=== PATIENT | female | born 1960 | race Caucasian/White ===

== ENCOUNTER → 2020-02-18 06:59 | Outpatient (CLI) | payer OTHER, SELFPAY ==
--- NOTE | ~2020-02-18 | XR_ITS ---
XR_CERV2-3V_CR 02/18/2020 07:45 Indication: Neck pain Procedure: 3 views cervical spine Comparison: No prior studies for comparison. Findings: No fracture or traumatic malalignment. Straightening of cervical lordosis. No prevertebral soft tissue swelling. Odontoid process within normal limits. Mild uncinate degenerative changes at mu ltiple levels. Lung apices are normal. Impression: 1: Mild cervical spondylosis. Reviewed, dictated and finalized at location A. GER DEVELOPMENT Impression: 1: Mild cervical spondylosis.
--- NOTE | ~2020-02-18 | XR_ITS ---
XR lumbar spine 2-3V 02/18/2020 07:45 Indication: Low back pain Procedure: 3 views lumbar spine Comparison: No prior studies for comparison. Findings: Osteopenia. Loss of disc height at L2-3 and to a lesser degree L3-4. No evidence for spondy lolisthesis. No acute fracture or traumatic malalignment. Pedicles intact. Mild facet degenerative ch anges at L5-S1. There is mild levocurvature of the thoracolumbar spine Impression: 1: Mild lumbar spondylosis. Reviewed, dictated and finalized at location A. LAYER MERCHANDISE Impression: 1: Mild lumbar spondylosis.
--- NOTE | ~2020-02-18 | XR_ITS ---
XR thoracic spine 2V 02/18/2020 07:45 Indication: Back pain Procedure: 3 views of the thoracic spine Comparison: No prior studies for comparison. Findings: Mild dextrocurvature of the thoracic spine. Osteopenia. No acute fracture or traumatic poly lignment. Mild levocurvature of the upper thoracic spine. No paraspinal soft tissue abnormality. Mild wedge-shaped appearance to T12 which is likely developmental or chronic. Impression: 1: No acute abnormality of the thoracic spine. Reviewed, dictated and finalized at location A. ATCHER SERVICE OR WORK Impression: 1: No acute abnormality of the thoracic spine.
== END ==
PROVIDERS: Visit Provider Chiropractor
DX: M47.812 Spondylosis without myelopathy or radiculopathy, cervical region (principal); M47.817 Spondylosis without myelopathy or radiculopathy, lumbosacral region; M85.88 Other specified disorders of bone density and structure, other site
CPT/HCPCS: 72040; 72070; 72100

== ENCOUNTER 2023-04-18 02:07 | Day surgery (SDC) | payer BC, SELFPAY ==
[2023-03-22 13:53] VITALS: BMI 21.7
--- NOTE | 2023-04-15 10:57 | PC.NURSE ---
Patient called regarding upcoming procedure. Reviewed preop instructions, appointment times, and procedure prep.
[2023-04-18 09:52] VITALS: BP 83/51; PULSE 70; RESP 16; TEMP 36.1; O2SAT 98; BMI 21.4
[2023-04-18] MEDS: LACTATED RINGERS 1,000 ML 150 ML IV CONT (10:09)
--- NOTE | 2023-04-18 10:21 | WPDANESEPPF ---
Anes - Initial Pre Proc Eval Procedure: Operation Date: 04/18/23 11:00 Proposed Procedures p Screening Colonoscopy - Hubert Mensah MD Date/Time: 04/18/23 10:21 Surgeon: Hubert Mensah MD Pre Op Diagnosis: neoplasm screening Patient Data Age: 62 Gender: F Height: 1.73 m Weight: 64 kg Last Vital Signs Temp 96.9 F L 04/18/23 09:52 Pulse 70 04/18/23 09:52 Resp 16 04/18/23 09:52 BP 83/51 L 04/18/23 09:52 Pulse Ox 98 04/18/23 09:52 Allergies Allergy/AdvReac Type Severity Reaction Status Date / Time No Known Allergies Allergy Mild Verified 04/18/23 09:59 Home Medications Medication Instructions Recorded Confirmed Type brimonidine 0.2 %-timolol 0.5 % 1 drp ophthalmic (eye) DAILY 03/22/23 04/18/23 History eye drops dorzolamide 2 % eye drops 1 drp ophthalmic (eye) DAILY 03/22/23 04/18/23 History latanoprost 0.005 % eye drops 1 drp ophthalmic (eye) DAILY 03/22/23 04/18/23 History Patient hx anesthesia problems: none Family hx anesthesia problems: none Results Review: All pre-operative results and documents have been reviewed as part of the pre-operative evaluation. [facility] Social History Social History Smoking status: Never smoker Alcohol intake: never Substance use type: does not use Living arrangements: with friend(s) Spiritual care concerns: No Anes - Eval Final PreProcedure Day of Procedure 04/18/23 10:21 Patient weight: normal Heart: regular rate and rhythm Lungs: clear to auscultation Airway: Mallampati scale class II Neurological: alert and oriented Last oral intake: >/= 8 hours ASA classification: II Emergent: no Anesthetic plan: proceed Anesthesia type and monitoring: general GIVS and standard monitoring Results Review: All pre-operative results and documents have been reviewed as part of the pre-operative evaluation. Informed Consent: The patient's anesthetic plan and its attendant risks and benefits were discussed with the patient/family/POA. Questions were solicited and answers provided to the satisfaction of the patient/family/POA.
--- NOTE | 2023-04-18 10:42 | PM.HPGS ---
History of Present Illness History of Present Illness Consent: Risks, benefits, and alternatives have been discussed and questions answered. Patient agrees to proceed with procedure. Chief complaint: neoplasm screening Narrative: Raven Almeida is a 62 year old female here for screening colonoscopy, last one 5 years ago Review of Systems Constitutional: Constitutional: Denies headache(s) and Denies weakness Eyes: Eyes: Denies blurry vision ENT: Reports Normal hearing present, Denies headache(s) and Denies neck pain Cardiovascular: Cardiovascular: Denies chest pain and Denies dyspnea Respiratory: Respiratory: Denies dyspnea Gastrointestinal: Gastrointestinal: Reports no additional gastrointestinal complaints Genitourinary: Genitourinary: Denies dysuria Musculoskeletal: Musculoskeletal: Denies neck pain Integumentary/Breasts: Skin/Breast: Denies dry skin Neurologic: Reports Normal hearing present, Denies headache(s) and Denies weakness Psychiatric: Psychiatric: Denies anxiety Endocrine: Endocrine: Denies change in body appearance Hematologic/Lymphatic: Hematologic/Lymphatic: Denies easy bleeding Allergic/Immunologic: Allergic/Immunologic: Denies urticaria PMFSH Past Medical History Medical History (Updated 04/18/23 @ 10:42 by Hubert Mensah MD) Colon cancer screening Social History Social History Smoking status: Never smoker Alcohol intake: never Substance use type: does not use Living arrangements: with friend(s) Spiritual care concerns: No Meds Home Medications and Allergies Home Medications Medication Instructions Recorded Confirmed Type brimonidine 0.2 %-timolol 0.5 % 1 drp ophthalmic (eye) DAILY 03/22/23 04/18/23 History eye drops dorzolamide 2 % eye drops 1 drp ophthalmic (eye) DAILY 03/22/23 04/18/23 History latanoprost 0.005 % eye drops 1 drp ophthalmic (eye) DAILY 03/22/23 04/18/23 History Allergies Allergy/AdvReac Type Severity Reaction Status Date / Time No Known Allergies Allergy Mild Verified 04/18/23 09:59 Vital Signs Vital Signs - 24 hr 04/18/23 09:52 Temperature 96.9 F L Pulse Rate 70 Respiratory Rate 16 Blood Pressure 83/51 L Pulse Oximetry 98 Exam Const: General: comfortable and no acute distress HENMT: Face/Nose/Sinus: Normal nares present Eyes: General: appearance normal, both eyes and all related structures Neck: Neck: no JVD Resp: Auscultation: clear to auscultation bilaterally Cardio: Rate: regular rate Rhythm: regular rhythm GI: Inspection: non-distended GI Palp: Yes Soft to palpation Skin: General skin exam: normal color Neuro: General: gait normal Speech: normal speech Extrem: General: normal to inspection Psych: Mental Status: mental status grossly normal Assessment and Plan Assessment and plan (1) Colon cancer screening: Code(s): Z12.11 - Encounter for screening for malignant neoplasm of colon Status: Acute Assessment and Plan: colonoscopy
[2023-04-18 11:08] VITALS: BP 80/45; PULSE 59; RESP 16; O2SAT 97
[2023-04-18 11:18] VITALS: BP 102/66; PULSE 56; RESP 16; O2SAT 97
[2023-04-18 11:21] VITALS: BP 105/59; PULSE 60; RESP 17; O2SAT 97
[2023-04-18 11:31] VITALS: BP 106/65; PULSE 60; RESP 17; O2SAT 97
[2023-04-18 11:41] VITALS: BP 130/90; PULSE 74; RESP 17; O2SAT 99
--- NOTE | 2023-04-18 12:00 | SUR.PHASEII ---
1140 Slow to wake up, and waiting for ride to arrive. Beginning to get dressed to go home
== END 2023-04-18 11:50 | disposition home or self-care (01) ==
PROVIDERS: PCP Student in an Organized Health Care Education/Training Program; Visit Provider Internal Medicine Gastroenterology
PROC: 0DJD8ZZ Inspection of Lower Intestinal Tract, Via Natural or Artificial Opening Endoscopic (ICD-10-PCS; CPT 45378; principal; 2023-04-18 11:00)
DX: Z12.11 Encounter for screening for malignant neoplasm of colon (principal); D12.2 Benign neoplasm of ascending colon; D12.5 Benign neoplasm of sigmoid colon
CPT/HCPCS: 45385; 88305; J2371; J2704; J7120

== ENCOUNTER 2023-09-16 14:25 | Outpatient (CLI) | payer MEDICARE, SELFPAY ==
--- NOTE | ~2023-09-16 | DEXA_ITS ---
Bone Density Report Name: ADRIAN BROWNE Age: 63 Sex: Female Ethnicity: White Date of : 1960 Indication: postmenopausal; screening for osteoporosis; height loss; Referring Provider: TURNER, CHARLIE Study: Bone densitometry was performed. Exam Date: September 16, 2023 Accession number: [id number] Bone Density: Region BMD T-score Z-score Classification AP Spine(L1-L4) 0.698 -3.2 -1.4 Osteoporosis Femoral Neck (Left) 0.553 -2.7 -1.2 Osteoporosis Total Hip (Left) 0.782 -1.3 -0.1 Osteopenia Femoral Neck (Right) 0.571 -2.5 -1.0 Osteoporosis Total Hip (Right) 0.776 -1.4 -0.1 Osteopenia Total Hip Mean 0.779 -1.4 -0.1 Osteopenia World Health Organization criteria for BMD impression classify patients as: Normal (T-score at or above -1.0), Osteopenia (T-score between -1.0 and -2.5), or Osteoporosis (T-score at or below -2.5). 10-year Fracture Risk: FRAX not reported because: Some T-score for Spine Total or Hip Total or Femoral Neck at or below -2.5 Clinical Information Provided by Patient: Patient maximum height was 68.0 Menopause Age: 48 No regular weight bearing exercise Onset of menses at age 14 Number of children 3 Impression: The patient has osteoporosis, based on the Total Spine T-score. Discussion: INCREASED RISK OF FRACTURE. BONE DENSITY IS UNDESIRABLY LOW AT ONE OR MORE SKELETAL SITES, CONSISTENT WITH POSTMENOPAUSAL OSTEOPOROSIS. This patient's lowest T-score meets the World Health Organization's (WHO) criteria for osteoporosis at one or more sites (T-score -2.5 or below). In untreated patients, the risk of osteoporotic fracture increases approximately two-fold for each 1.0 SD decrease in T-score. Low bone density is not the only risk factor for fracture; also consider factors such as patient's age, frailty or poor health, risk of falling, risk of injury, previous osteoporotic fracture, family history of osteoporosis, cigarette smoking, low body weight, etc. Not everyone with low bone mineral density has osteoporosis; osteomalacia and other metabolic bone disorders should also be considered. Patients who have osteoporosis should be evaluated for specific diseases and conditions (secondary causes) that may cause or contribute to bone loss. The [place] Association of Clinical Endocrinologists (AACE) and National Osteoporosis Foundation (NOF) recommend pharmacologic intervention for all postmenopausal women whose T-score is in this range. The patient should follow a healthful lifestyle (good nutrition with adequate calcium and vitamin D, and appropriate weight-bearing exercise). Follow-Up: Consider a repeat BMD and Vertebral Fracture Assessment (VFA) exam in 2 years or sooner if medically necessary, to reassess this patient's status. Reported by: EZEQUIEL on 09/16/2023 2:54:00 PM.
== END 2023-09-16 14:26 | disposition home or self-care (01) ==
LOC: ANHIMG 14:26
PROVIDERS: PCP Registered Nurse; Visit Provider Registered Nurse
DX: Z78.0 Asymptomatic menopausal state (principal); M81.0 Age-related osteoporosis without current pathological fracture; M85.852 Other specified disorders of bone density and structure, left thigh; M85.851 Other specified disorders of bone density and structure, right thigh
CPT/HCPCS: 77080

== ENCOUNTER 2024-07-11 11:29 | Emergency (ER) | payer MEDICARE, SELFPAY ==
[2024-07-11] VITALS (8 sets, daily range): BP systolic 99–118; BP diastolic 61–94; PULSE 61–70; RESP 12–17; TEMP 36.8; O2SAT 96–100
--- NOTE | ~2024-07-11 | XR_ITS ---
EXAMINATION: XR chest 2V 07/11/2024 13:40 INDICATION: Chest pain PROCEDURE: 2 view chest COMPARISON: 02/24/2007 FINDINGS: The lungs are clear. The cardiomediastinal silhouette is within normal limits. There are no pleural effusions. There is no pneumothorax suspected. Prominent bilateral nipple shadows. IMPRESSION: 1: NO ACUTE CARDIOPULMONARY DISEASE. Reviewed, dictated and finalized at location B.
--- NOTE | 2024-07-11 11:31 | ECG_ITS ---
Test Date: 2024-07-11 11:47:53 Measurements Intervals Simpson Rate: 59 P: 65 WI: 227 QRS: 33 QRSD: 77 T: 63 QT: 377 QTc: 376 Interpretive Statements SINUS BRADYCARDIA WITH FIRST DEGREE AV BLOCK LOW QRS VOLTAGE IN PRECORDIAL LEADS CANNOT R/O SEPTAL INFARCT, AGE INDETERMINATE BASELINE ARTIFACT- I, III, AVR, AVL, AVF ABNORMAL ECG No previous ECG available for comparison Electronically Signed On 07-11-2024 12:56:38 CDT by Ming Nelson D.O.
[2024-07-11 12:02] LABS: Basophils Percent Auto 0.3 % (0.2-1.2); Eosinophils Absolute Auto 0.2 K/mm3 (0-0.3); Eosinophils Percent Auto 1.8 % (0-4.4); Hematocrit 45.3 % (37.0-47.0); Immature Granulocyte Absolute 0.02 K/mm3 (0.00-0.031); Immature Granulocyte Percent A 0.2 % (0-0.5); Lymphocytes Absolute Auto 1.57 K/mm3 (0.9-3.2); Lymphocytes Percent Auto 17.5 % (18.3-44.2); Mean Corpuscular HGB Conc 33.1 g/dl (32-36); Mean Corpuscular Hemoglobin 31.4 pg (26-34); Mean Platelet Volume 9.7 fl (7.4-10.4); Monocytes Absolute Auto 0.6 K/mm3 (0.1-0.6); Monocytes Percent Auto 6.5 % (2.6-8.5); Neutrophils Absolute Auto 6.6 K/mm3 (1.3-6.7); Neutrophils Percent Auto 73.7 % (45.5-73.1); Platelet Count Result 233 k/mm3 (150-375); Red Blood Count 4.77 M/mm3 (4.2-5.4); Red Cell Distribution Width 13.1 % (11.5-14.5)
[2024-07-11 12:16] LABS: Partial Thromboplastin Time 23.4 Seconds (22.3-36.8); Prothrombin Time 13.5 Seconds (11.1-14.7)
[2024-07-11 12:23] LABS: Alanine Aminotransferase 37 U/L (6-35); Albumin Level 4.7 g/dL (3.5-5.1); Alkaline Phosphatase 72 U/L (38-126); Anion Gap 7 mmol/L (4-12); Aspartate Amino Transferase 34 U/L (14-36); Bilirubin,Total 0.9 mg/dL (0.2-1.3); Blood Urea Nitrogen 15 mg/dL (7-17); Calcium 10.2 mg/dL (8.4-10.2); Carbon Dioxide 30 mmol/L (22-30); Chloride 99 mmol/L (98-107); Estimated CRCL calculation 57 ml/min; Estimated Glomerular Filt Rate > 60; Glucose 104 mg/dL (65-110); Lipase 114 U/L (23-300); Potassium 4.3 mmol/L (3.4-5.0); Sodium 136 mmol/L (137-145)
[2024-07-11 12:35] LABS: Troponin I < 0.012 ng/mL (0.000-0.034)
--- OUTSIDE RECORDS SUMMARY | 2024-07-11 12:53 | XMS_ITS | Clinical Summary ---
Author Organization [facility] Address [address] [place] [address] Care Team Providers Care Stock Clerk Name Role Phone No, Physician Primary Care Provider [phone] Allergies No known active allergies Medications UNABLE TO FINDIndication s:supplement 2 (two) times a day Pure encapsulation Nutrient 950 Active cholecalcifero l, vitD3,/vit K2 (VITAMIN D3-VITAMIN K2 ORAL) Take by mouth every morning Active bimatoprost (LUMIGAN) 0.01 % ophthalmic drops Administer 1 drop into both eyes daily Active chlorhexidine (PERIDEX) 0.12 % solution SWISH AND SPIT 1/2 OUNCE BY MOUTH TWICE DAILY FOR 30 SECONDS 3 Active latanoprost (XALATAN) 0.005 % ophthalmic solution Administer 1 drop into both eyes nightly 7.5 mL 11 4 Active dorzolamide (TRUSOPT) 2 % ophthalmic solution Administer 1 drop into the left eye 2 (two) times a day 20 mL 3 4 Active brimonidine (ALPHAGAN) 0.2 % ophthalmic solution Administer 1 drop into both eyes 2 (two) times a day 30 mL 3 4 Active timolol (TIMOPTIC) 0.5 % ophthalmic solution Administer 1 drop into both eyes 2 (two) times a day 30 mL 3 4 Active Active Problems Problem Noted Date Diagnosed Date Chronic angle-closure glaucoma of left eye, mode rate stage 02/20/2019 Angle-closure glaucoma, severe stage 02/20/2019 Age-related nuclear cataract of both eyes 2018 Surgical History Surgery Date Site/Laterality Comments BREAST BIOPSY 2011? - benign COLONOSCOPY Medical History Medical History Date Comments Glaucoma Motion sickness Epiretinal membrane (ERM), bilateral Family History Medical History Relation Name Comments Cancer Mother Relation Name Status Comments Father Alive Mother Alive Social History Tobacco Use Types Packs/Day Years Used Date Smoking Tobacco: Never Smokeless Tobacco: Never AUDIT-C Answer Date Recorded Q1: How often do you have a drink containing alc ohol? Monthly or less 10/07/2021 Q2: How many drinks containi ng alcohol do you have on a typical day when you are drinking? 1 or 2 10/07/2021 Q3: How often do you have si x or more drinks on one occasion? 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 Gender Identity Not on file Sexual Orientation Not on file Obstetrics History Last Filed Vital Signs Vital Sign Reading Time Taken Comments Blood Pressure 120/67 10/19/2021 2:00 PM CDT Pulse 55 10/19/2021 2:00 PM CDT Temperature 36.2 C (97.2 F) 10/19/2021 1:41 PM CDT Respiratory Rate 15 10/19/2021 2:00 PM CDT Oxygen Saturation 100% 10/19/2021 2:00 PM CDT Inhaled Oxygen Concentration - - Weight 63.5 kg (140 lb) 10/05/2021 4:35 PM CDT Height 172.7 cm (5' 8 ) 10/05/2021 4:35 PM CDT Body Mass Index 21.29 10/05/2021 4:35 PM CDT Plan of Treatment Health Maintenance Due Date Last Done Comments Breast Cancer Screening-Mammogram 1960 Colon Cancer Screening-Colonoscopy 1960 Depression Screening 1960 Hepatitis C Screening 1960 Osteoporosis Screening-Bone Density Scan 1960 DTaP/Tdap/Td Vaccine (1 - Tdap) 1969 Hepatitis B Screening 1976 Pneumococcal vaccine 65+ (1 of 1 - PCV) 2008 Zoster Vaccine (1 of 2) 2008 Fall Risk Assessment 10/19/2022 10/19/2021 Well Visit 65+ 09/01/2023 Influenza Vaccine (#1) 2023 Cervical Cancer Screening 01/20/2024 01/19/2023 Medical Devices Implanted Type Area Outreach Educator Device Identifier Shelf Expiration Date Model / Serial / Lot Ida [employer] Lens Iol Tecadela Smplcty 1-Pc Clr Moca 22.0 Diopter [id number] - [id number] - [id number] Implanted:Qty: 1 on 10/19/2021 by Braulio Rios MD at [facility] Lens Right: Eye [employer] [id number] 08/18/2024 [id number] / [id number] / 0 [place] [address] CHOICE PRF PPO [place] Care Teams Stock Clerk Relationship Specialty Start Date End Date No, Physician PCP - General 12/28/18
--- OUTSIDE RECORDS SUMMARY | 2024-07-11 12:53 | XMS_ITS | Clinical Summary ---
Author Organization [facility] Address [address] [place] [address] Care Team Providers Care Tire Builder Heavy Service Name Role Phone Unavailable Primary Care Provider Unavailabl e Source Comments PLEASE NOTE, if this patient is a minor, it may be UNLAWFUL to discuss sensitive information that is contained in these records (such as FAMILY PLANNING, MENTAL HEALTH or SUBSTANCE ABUSE) with the minor patient's parent or other person without the patient's specific authorization.[facility] Allergies No known active allergies Medications No known medications Social History Tobacco Use Types Packs/Day Years Used Date Smoking Tobacco: Never Smokeless Tobacco: Never Alcohol Use Standard Drinks/Week Comments No 0 (1 standard drink = 0.6 oz pur e alcohol) Social Connections Answer Date Recorded Social Connections and Isolation 0 11/19/2018 Financial Resource Strain Answer Date R ecorded Financial Resource Strain 0 2018 Stress Answer Date Recorded Stress 0 11/19/2018 Physical Activity Answer Date Recorded Physical Activity 0 11/19/2018 Food Insecurity Answer Date Recorded Food 0 11/19/2018 Transportation Needs Answer Date Record ed Transportation 0 11/19/2018 Housing Stability Answer Date Recorded Housing 0 11/19/2018 Safety and Environment Answer Date Raymond rded Safety 0 11/19/2018 Utilities Answer Date Recorded Utilities 0 11/19/2018 Employment Answer Date Recorded Employment 0 11/19/2018 Comments No Sex and Gender Information Value Date Recorded Sex Assigned at Female 03/09/2018 9:58 AM PST Legal Sex Female 10:50 AM PDT Gender Identity Female 03/09/2018 9:58 AM PST Sexual Orientation Straight 03/09/2018 9: 58 AM PST Last Filed Vital Signs Vital Sign Reading Time Taken Comments Blood Pressure 94/57 03/09/2018 9:19 AM PST Pulse 63 03/09/2018 9:19 AM PST Temperature 36.6 C (97.8 F) 03/09/2018 9:19 AM PST Respiratory Rate 16 03/09/2018 9:19 AM PST Oxygen Saturation - - Inhaled Oxygen Concentration - - Weight 60.3 kg (133 lb) 03/09/2018 9:19 AM PST Height 172.7 cm (5' 8 ) 03/09/2018 9:19 AM PST Body Mass Index 20.22 03/09/2018 9:19 AM PST Plan of Treatment Not on file Insurance [facility] Member Subscriber Plan / Payer (Ef fective 2015-Present) Name:Raven Almeida Relation to Subscriber:Self Name:Raven Almeida Payer ID:[id number] Group ID:Not on file Type:Sabra Address: [facility] [id number] [place] [address]
--- OUTSIDE RECORDS SUMMARY | 2024-07-11 12:53 | XMS_ITS | Referral Summary ---
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 Gender Identity Not on file Sexual Orientation Not on file Last Filed Vital Signs Vital Sign Reading [...] 10/05/2021 4:35 PM CDT Plan of Treatment Not on file Medical Devices Implanted Type Area Fitting Room Inspector Device Identifier Shelf Expiration Date Model / Serial / Lot [employer] Lens Iol Tecnis Smplcty 1-Pc Clr [place] 22.0 Diopter [id number] - [id number] - [id number] Implanted:Qty: 1 on 10/19/2021 by Braulio Rios MD at [facility] Lens Right: Eye [employer] [id number] 08/18/2024 [id number] / [id number] / 0 [place] [address] MEDICARE [place] CHOICE PRF PPO [place] Care Teams Brush Head Maker Relationship Specialty Start Date End Date No, Physician PCP - General 12/28/18
--- OUTSIDE RECORDS SUMMARY | 2024-07-11 12:53 | XMS_ITS | Encounter Summary ---
Author Organization [facility] Address [address] [place] [address] Phone Care Team Providers Care Automotive Teacher Name Role Phone No, Physician Primary Care Provider [phone] Encounter Details Date Type Department Care Team (Late st Contact Info) Description 07/18/2023 Orders Only [facility] Ophthalmology [facility] [place] [address] Braulio Rios MD [address] [place], [place] [id number] Age-related nuclear cataract of both eyes (Primary Dx) Social History Tobacco Use Types Packs/Day Years [...] on file Legal Sex Female 12:49 AM BEVELER Gender Identity Not on file Sexual Orientation Not on file documented as of this encounter Plan of Treatment Not on file documented as of this encounter Visit Diagnoses Diagnosis Age-related nuclear cataract of both eyes- Primary documented in this encounter Care Teams Automotive Teacher Relationship Specialty Start Date End Date No, Physician PCP - General 12/28/18 documented as of this encounter
--- OUTSIDE RECORDS SUMMARY | 2024-07-11 12:53 | XMS_ITS | Continuity of Care Document ---
Author Organization [facility] Address [address] [place] [address] Phone Care Team Providers Care Oracle Specialist Name Role Phone Leigh Ann Kaplan PA-C Unavailable Unavailable Allergies, Adverse Reactions, Alerts Substance Reaction Status Criticality No Known Allergies Active No Inform ation Medications Medication Instructions Dosage Effective Dates (start - stop) Status Comments No Drug Therapy Prescribed Procedures Procedure Date Preven Med Estab Pt; 4064 Advance Directives Directive Yes / No Effective Date File Name No Information Encounters Encounter Description Practice Location Reason(s) For Visit Diagnoses Date Provider Providers Copied on Encounter [facility], [address], [place], [place], [id number] , tel: [phone] [facility] No Information May-0 2 6 Eusebio Beltrán. [address], [place], [place], [id number] , [place]. 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 [address], [place], [place], [id number] , . tel:[phone] Referring Provider: Leigh Ann Kaplan PA-C, [address] [facility], [address], [place], [address] . tel:[phone] Family History Family Member Type Diagnosis Age At Onset No Information Payers Payer name Insurance type Covered republican ID Authoriza tion(s) [place] P[place] BL [id number] Social History Type Description Quantity Date Captured Comments Sex Female Smoking Status No Information Chief Complaint And Reason For Visit No Information Reason For Referral Reason For Referral No Information Plan Of Treatment Date Type Action Status Referral Ordered: Mammogram; Screening, Bilateral ordered Referral Ordered: DEXA Bone Density ordered Future Order: Lab Order CBC with Diff ([id number]), Sent on: Sent Future Order: Lab Order Occult B lood, Fecal, [place] ([id number]), Sent on: Sent Future Order: Lab Order TSH REFL EX ([id number]), Sent on: Sent Future Order: Lab Order LIPID PA PURNIMA ([id number]), Sent on: Sent Future Order: Lab Order CMP ([id number]), Sent on: Sent Future Order: Lab Order UA w/ mi crop consultant refex to culture ([id number]), Sent on: Sent Future Order: Radiology Order Ma mmogram; Screening, Bilateral ([id number]), Added on: New Future Order: Radiology Order DE XA Bone Density ([id number]), Added on: New History Of Present Illness Encounter Date Complaint History Of Prese nt Illness WWE WWE (comments) Pt here for wwe. Pt doing well. . Pt recently moved here from [facility]. colonoscopy nml at age 48 no polyps foind. pt has vaginal dryness and hot flashes . pt used estrace cream with old pcp and sxs did not improve. 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
--- OUTSIDE RECORDS SUMMARY | 2024-07-11 12:53 | XMS_ITS | Data Portability ---
Author Organization [facility] [place] Address [address] [place] [address] [place] [address] Care Team Providers Care Supervisor Belt And Link Assembly Name Role Phone JOSÉ LEES Primary Care Provider Assessment Encounter Date Assessment Date Assessment LastModified by Organization Details LastModified Time 03/01/2023 03/01/2023 4 [email or web address] Not available 03/01/2023 10:26:53 04/06/2024 04/06/2024 Annual gynecological exam performed. Patient will come back in a year unless there are new symptoms. Not available 04/06/2024 10:14:07 Plan of Treatment Reminders Order Date Submit Date Provider Last Modified By Organization Details Last Modified Time Details Appointments None recorded. Lab pap, IG + HR HPV - HPV regardless but if HPV is positive need subtyping 16,18/45 2024 025 [facility] (Lab), [address], [place], [address], 5 11:55:27 test, urine 2022 023 [place], [address], [address], [place], [address], 3 10:14:13 Referral None recorded. Procedures None recorded. Surgeries None recorded. Imaging MAMMO, screening, digital, bilateral 2024 025 [place] [facility], [address], [place], [address], 04:07:26 Medication Orders None recorded. Patient TargetsNo targets recorded. Patient InstructionsNo instructions recorded. Reason for Referral None Reported. Results Created Date Observation Date Name Description Value Unit Range Abnormal Flag Note LastModifiedBy Organization Detail LastModifiedTime 03/01/2003/08/2023 CERVI X/END OCERV IX cervical histology Negati ve normal Not Available [facility] ([facility]) [address] , [place], [address], 03/08/2023 11:40:11 03/01/20 23 03/08/2023 CERVI X/END OCERV IX endocervical brushing histology Negati ve normal Not Available [facility] ([facility]) [address] [facility] [address], [place], [address], 03/08/2023 11:40:11 03/01/2003/08/2023 CERVI X/END OCERV IX results (B1) CERVI X, 4 O CLOCK GROSS ING INFOR MATIO N: Site Name: 4 O CLOCK ; Recei morales in forma meghan on a soft biops y brush is a 0.7 cm aggre gate of clear -to-m ilky mucoi d/fib rinou s mater ial. Speci men is filte red and total ly submi tted. B1 DIAGN OSIS: Benig n ectoc ervic al tissu e. Trans forma tion zone mucos a not prese nt No intra epith elial lesio n. Immun ohist ochem ical stain for p16 shows no expre ssion . (A1) ENDOC ERVIX GROSS ING INFOR MATIO N: Recei morales in forma meghan on a soft ecc brush is a 1.0 cm aggre gate of clear -to-m ilky mucoi d/fib rinou s mater ial. Speci men is filte red and total ly submi tted. A1 DIAGN OSIS: Benig n ectoc ervic al tissu e. Trans forma tion zone mucos a not prese nt. No intra epith elial lesio n. Not Available [facility] ([facility]) [address], [place], [address], 03/08/2023 11:40:11 03/01/20 23 03/01/2023 pregn taiwo test, urine HCG negati ve Not Available [facility] [address], [place], [address], 03/01/2023 10:14:03 04/06/19 25 04/06/2024 IMAGE GUIDE D PAP AND HPV REGAR DLESS image guided Pap, HPV regardless of Pap result SEE RESULT S BELOW CASE REPOR T: Cytol ogy Gynec ologi pia Repor t Case: [id number] Autho tracy michelle Provi jaylin: Daxa Durbin NP Colle cted: 04/06 0953 Order ing Locat ion: [place] [facility] Recei morales: 04/07 0128 First Frank n: Isauro Villar, CT Speci men: Frank ritter Pap - Image d, Cervi x STATE MENT OF ADEQU ACY: Satis facto ry for evalu ation Trans forma tion zone compo nent prese nt ----- ----- ----- ----- ----- ----- ----- ----- ----- ----- ----- ----- ----- ----- ----- ----- ----- ---- FINAL DIAGN OSIS: Negat dev for Intra epith elial Peter germain or Michelle luna (NIL) . Elect rom carrillo by KELSEY Watson on 2024 at [address] RANGE OPERATOR ----- ----- ----- ----- ----- ----- ----- ----- ----- ----- ----- ----- ----- ----- ----- ----- ----- ---- HPV RESUL TS: HPV mRNA E6/E7 : No HPV mRNA Detec rox NOTE: This high risk HPV mRNA assay detec ts fourt een high- risk HPV types (16, 18, 31, 33, 35, 39, 45, 51, 52, 56, 58, 59, 66, 68) witho ut diffe renti ation . COMME NT: This speci men was revie wed by a Cytot echno logis t and/o r Patho logis t (as indic ated in this repor t) after evalu ation using the Thinp rep Imagi ng Syste m. CLINI PIA INFOR MATIO N: Menst rual Statu s: LMP (if appli cable ): Clini pia Histo ry/Pr eviou s Pap: Type of Neopl yamile (if appli cable ): Signi fican t Clini pia Findi ngs: Other Histo ry: Hormo amaya (if appli cable ): PAP EDUCA MARVIN L NOTE: The Pap Test is a scree stone test with an inher ent false negat dev rate. Liqui d-bas ed sampl ing may decre ase, but will not elimi alonso, false negat dev resul ts. A negat dev resul t does not precl ude the prese nce and/o r devel opmen t of disea se, since the prese nce of abnor mal cells in the sampl e depen ds on the locat ion of the lesio n and sampl ing techn ique. Ginger nued regul ar scree stone is the best metho d of cance r preve ntion . If repor rox cytol ogic findi ng do not corre late with physi pia and/o r histo rical findi ngs, furth er inves tigat ion is recom luis antonio d, as clini edson ruiz nted. Not Available [facility] (Lab) [address], [place], [address], 04/13/2024 11:55:27 04/06/19 25 DEXA No observ ation record ed. [email or web address] Not Available 2024 10:47:32 Result Notes None recorded. Procedures Surgical History Date Name Laterality Status Provider Name and Address Organization Details Recorded Time 03/01/20 Colposcopy completed ROBERTO Rodriguez- [address], [place], [address], [place] [facility] 03/01/2023 10:34:03 02/02/20 23 Date of Last Pap Smear completed Kristine [facility] 02/15/2023 11:13:59 cataract surgery completed Kristine [facility] 02/15/2023 11:21:31 Imaging Results Imaging Date Name Status LastModified by Organizatio n Details LastModified Time 04/06/2024 DEXA completed [email or web address] Information no t available 04/06/2024 10:47:32 Procedure Notes None recorded. Medical Equipment None Reported. Allergies No known drug allergies Medications Name Sig Start Date Stop Date Status Note LastModified by Organization Details LastModified Time latanoprost 0.005 % eye drops INSTILL 1 DROP INTO BOTH EYES EVERY NIGHT AT BEDTIME 2024 active Not Available Not Available Not Avai lable metronidazo le 500 mg tablet TAKE 1 TABLET BY MOUTH TWICE DAILY FOR 7 DAYS 02/15 completed Not Available Not Available Not Available brimonidine 0.2 % eye drops INSTILL 1 DROP INTO BOTH EYES TWICE DAILY 2024 active Not Available Not Available Not Avai lable timolol maleate 0.5 % eye drops ADMINISTE R 1 DROP INTO BOTH EYES TWICE DAILY 2024 active Not Available Not Available Not Avai lable amoxicillin 875 mg-potassiu m clavulanate 125 mg tablet 04/06 completed Not Available Not Available Not Available dorzolamide 2 % eye drops INSTILL 1 DROP INTO LEFT EYE TWICE DAILY 2024 active Not Available Not Available Not Avai lable nitrofurant oin monohydrate /macrocryst als 100 mg capsule 04/06 completed Not Available Not Available Not Available chlorhexidi ne gluconate 0.12 % mouthwash SWISH AND SPIT 1/2 OUNCE BY MOUTH TWICE DAILY FOR 30 SECONDS 04/06 completed Not Available Not Available Not Available brimonidine 0.2 %-timolol 0.5 % eye drops INSTILL 1 DROP IN BOTH EYES TWICE DAILY 04/06 completed Not Available Not Available Not Available Vitals Date Recorded Body height Body mass index (BMI) Body weight Systolic blood pressure Diastolic blood pressure Provider Name and Address Organization Details Last Updated DateTime 02/15/2023 172.72 cm 21.6 kg/m2 09801.12 g 88 mm[Hg] 60 mm[Hg] Kristine Gomez [facility] 3 11:26:09 Date Recorded Body height Body mass index (BMI) Body weight Systolic blood pressure Diastolic blood pressure Provider Name and Address Organization Details Last Updated DateTime 03/01/2023 172.72 cm 21.9 kg/m2 35183.3 g 98 mm[Hg] 63 mm[Hg] Kristine Gomez [facility] 3 10:13:00 Date Recorded Body height Body mass index (BMI) Body weight Systolic blood pressure Diastolic blood pressure Provider Name and Address Organization Details Last Updated DateTime 04/06/2024 172.72 cm 22 kg/m2 55602.18 g 100 mm[Hg] 64 mm[Hg] Sylvia Larissa [facility] 5 10:22:11 Social History Question Answer Notes LastModified by Organizat ion Details LastModified Time Tobacco Smoking Status Never Smoker Kristine Gomez [facility] 02/15/2023 11:21:16 Do You Have An Advance Directive? Yes [email or web address] Information not available 04/06/2024 What Is Your Level Of Alcohol Consumption? Occasional [email or web address] Information not available 04/06/2024 How Many Years Have You Consumed Alcohol? 3 [email or web address] Information not available 04/06/2024 Are You Blind Or Do You Have Difficulty Seeing? No [email or web address] Information not available 04/06/2024 What Is Your Level Of Caffeine Consumption? None [email or web address] Information not available 04/06/2024 How Much Tobacco Do You Chew? None [email or web address] Information not available 04/06/2024 In The 14 Days Before Symptom Onset, Have You Had Close Contact With A Laboratory-confir med COVID-19 While That Case Was Ill? No Information not available 02/15/2023 In The 14 Days Before Symptom Onset, Have You Had Close Contact With A Person Who Is Under Investigation For COVID-19 While That Person Was Ill? No Information not available 02/15/2023 Have You Been To An Area Known To Be High Risk For COVID-19? No Information not available 02/15/2023 Are You Deaf Or Do You Have Serious Difficulty Hearing? No [email or web address] Information not available 04/06/2024 What Type Of Diet Are You Following? REGULAR [email or web address] Information not available 04/06/2024 What Is The Highest Grade Or Level Of School You Have Completed Or The Highest Degree You Have Received? 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 No Information not available 04/06/2024 Do You Use Protection During Sex? No [email or web address] Information not available 04/06/2024 Do You Use Your Seat Belt Or Car Seat Routinely? Yes [email or web address] Information not available 04/06/2024 Do You Have Smoke And Carbon Monoxide Detectors In Your Home? Yes [email or web address] Information not available 04/06/2024 How Much Tobacco Do You Smoke? No [email or web address] Information not available 04/06/2024 Do You Feel Stressed (tense, Restless, Nervous, Or Anxious, Or Unable To Sleep At Night)? [id number] [email or web address] Information not available 04/06/2024 Do You Use Any Illicit Or Recreational Drugs? No Information not available 02/15/2023 Do You Use Sunscreen Routinely? No [email or web address] Information not available 04/06/2024 Have You Used IV Drugs? No [email or web address] Information not available 04/06/2024 Sex: Unknown Functional Status Question Answer Note LastModified by Organization D etails LastModified Time Are you able to walk? YESWOREST [email or web address] Information not available 04/06/2024 What is your exercise level? Moderate Information not available 04/06/2024 Mental Status None recorded. Family History Relationship Description Onset Age of this Age Resolved Age Notes LastModified by Organization Details LastModified Time Mother Malignant tumor of colon Not available 2022 11:28:16 Mother Hypercholest [email or web address] Not available 2022 11:29:10 Maternal Grandfather Heart disease Not available 2022 11:28:27 Paternal Grandmother Diabetes mellitus Not available 2022 11:28:39 Sister Hypercholest erolemia Not available 2022 11:29:10 Maternal Aunt Hyperchyaron lee Not available 2022 11:29:10 Medical History Condition Response Other Y History of abnormal pap Y Osteoporosis Y High Cholesterol Y Gynecological History Statement/Question Response Abnormal Pap Y Date of Last Mammogram On BCP's at Conception? N N STIs/STDs N HPV Vaccine N Current Control Method Menopause Age at First Child 23 If Post Menopausal, Age at Menopause 48 Date of Last Colonoscopy Sexually Active? Y Menses Monthly N Date of DEXA bone scan Age of first menstrual cycle 14 Date of Last Pap Smear 02/01/2023 Sexual Problems? N LMP Unknown Obstetrics History GPAL:G 3 P 0 0 0 3 Type Value Living 3 Total 3 Past Encounters Encounter ID Performer Location Encounter Start Date Encounter Closed Date Diagnosis/Indication Diagnosis SNOMED-CT Code Diagnosis ICD10 Code Diagnosis Note [id number] [facility] [address] [address] 02/15/2023 11:07:18 02/15/2023 11:44:50 Low grade squamous intraepithelial lesion on cervical Papanicolaou smear 9802832610 9105 R87.612 Today we discussed recent pap/hpv results, colposcopy and recommende d next steps.She agrees to scheduling for colposcopy . Counseled on Pap/HPV guidelines /Testing/R esults with understand ing verbalized .All questions answered to patient satisfacti on. Booklet & additional resources regarding pap smear/HPV/ Pap results given. [email or web address] ov/types/c ervical/un derstandin g-abnormal -hpv-and-p ap-test-re sults/unde rstanding- cervical-c hanges.pdf Health Hx was reviewed and updated as reported in chart. Time spent in visit is a total of 30 mins with at least 50% of visit consisting of counseling and review of plan of care. [id number] [facility] [address] [address] 03/01/2023 10:00:01 03/01/2023 10:38:14 Screening procedure 38121764 Z13.9 Low grade squamous intraepithelial lesion on cervical Papanicolaou smear [id number] 9105 R87.612 See procedure notes.Post -procedure instructio ns reviewed with understand ing verbalized .Will contact with results & next steps in plan of care. Counseled on Pap/HPV guidelines /Testing/R esults with understand ing verbalized .All questions answered to patient satisfacti on. Booklet & additional resources regarding pap smear/HPV/ Pap results given. [email or web address] ov/types/c ervical/un derstandin g-abnormal -hpv-and-p ap-test-re sults/unde rstanding- cervical-c hanges.pdf [id number] Sylvia Dias [facility] [address] [address] 04/06/2024 10:13:30 04/06/2024 10:47:56 Gynecologic examination [id number] Z01.419 WWEpostmen opausalPap - done todaySTI screen - declinedMa mmogram - order given, encouraged to scheduleCo radha cancer screening - UTDDexa - UTD/PCP, discussed osteoporos is/recomme ndations with ptRoutine labs - UTD/PCPRTC in 1 yr or sooner if needed Do monthly self breast exams.It is advised to get annual flu shot in the fall and she could obtain at local pharmacy. If you haven't received the Tdap vaccine in the last 10 years you should obtain one as well.Have mammogram yearly, bone density every 2-3 years and stay up to date on colon cancer screening. Engage in regular exercise. Avoid tobacco and illicit drugs. This lifestyle behavior pattern will lead to less health conditions and longer life span. If BMI greater than 25 dietary consult advised.Qu estions have been answered. Screening for malignant neoplasm of breast 669411090 Z12.39 Health Concerns Section Related Observation LastModified by Organization Detai ls LastModified Time None Recorded Concern Status LastModified by Organization Details LastModified Time None Recorded Advance Directives Directive Y: Payers Encounter Date Sequence Insurance Name Policy Number Policy Mas Covered Member ID Mas Member ID Guarantor Name 02/15/2023 1 [place] [id number] Ravenkash Almeida [id number] Ravenkash Almeida 03/01/2023 1 [place] [id number] Raven Juan Pablo [id number] Raven Almeida 04/06/2024 1 [place] Raven Paola Juan Pablo [id number] Raven Juan Pablo Notes Date Note Type Note Provider Name and Address Organization Details Recorded Time 3 text/html Here today to discuss LGSIL HPV + pap from 2022 done by her PCP; and the recommended f/u and testing for result. Health Hx was reviewed and updated as reported in chart. Elizabeth [facility] ABRIL- [address], [place], [address], [facility] 02/15/2023 11:44:39 3 text/html Here today for colposcopy for LGSIL pap/hpv 2022. [facility] [address], [place], [address], [facility] 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 Post-MenopausalReported bypatient.Menopausal Symptoms:no menopausal symptoms; normal vaginal lubrication Vaginal Bleeding:history of menopause having occurred; no history of post menopausal bleeding Urinary Symptoms:no hematuria; no incontinence; no nocturia; no urinary frequency Vulva:no genital lesion; no vulvar atrophy Vagina:normal vaginal discharge; no vaginal atrophy Breast:no breast lump; no nipple discharge; no breast pain Sexual Complaints:no sexual complaints Psychological Symptoms:no depression; no anxiety Preventive Measures:encourage regular mammograms starting age 40; encourage self breast examination; encourage regular exercise; encourage no tobacco useNotes:63yo wwepostmenopausallast pap 01/2023 : LGSIL (done at another office)colposcopy done 02/2023 : benignprior to pap done 01/2023 all normal pap hx per ptmammogram - last 15 yrs agocolonoscopy done exa done 2023, osteoporosis (discussed pharmacologic management with her PCP - declined medication. Has started doing weight bearing exercises and ensuring adequate calcium/vitamin D) Sylvia Dias [facility] 04/06/2024 10:47:53 OBGyn Episode Ob Episode Information Episode Created Date Number of Fetuses Patient Bloodtype Patient rh Status Prepregnancy Weight lbs Domestic Partner Domestic Partner Phone Father Name Tissue Inserter Status 02/16/20 1 CLOSED Fetus Data First Name Last Name Admitted to NICU Weight (g) Sex Living Outcome Pediatric Complications Fetus ID Race Codes Race Delivery Type 3628.73 6 Full Term [id number] Vaginal Delivery Pal Calculation Initial Pal Date Initial Exam Date Initial Exam Provider Initial Ultrasound Date Last Menstrual Period Date Ultra Sound Weeks Gestation 0 Eighteen To Twenty Week Pal Update Ultra Sound Date Fundal Height At Umbil Quickening Date Ultra Sound Latest Weeks Gestation Final Pal Confirmed By Final Pal Confirmed Date Final Pal Date Ultra Sound Latest Days Gestation 0 0 Menstrual History Last Menstrual Date Menses Monthly On Bcp Conception Prior Menses Frequency Hcg Plus Date Menarche Onset Age Delivery Information Delivery Date Delivery Type Labor Anesthesia Weeks Gestation Incision Type Labor Labor Length Hrs Delivered By Post Complications Tubal Sterilization Discharge Date Comments 4 Discharge Information Feeding Method Contraceptive Method Maternal HG B and HCT Levels Ob Episode Information Episode Created Date Number of Fetuses Patient Bloodtype Patient rh Status Prepregnancy Weight lbs Domestic Partner Domestic Partner Phone Father Name Tissue Inserter Status 02/16/20 23 1 CLOSED Fetus Data First Name Last Name Admitted to NICU Weight (g) Sex Living Outcome Pediatric Complications Fetus ID Race Codes Race Delivery Type 3628.73 6 Full Term [id number] Vaginal Delivery Pal Calculation Initial Pal Date Initial Exam Date Initial Exam Provider Initial Ultrasound Date Last Menstrual Period Date Ultra Sound Weeks Gestation 0 Eighteen To Twenty Week Pal Update Ultra Sound Date Fundal Height At Umbil Quickening Date Ultra Sound Latest Weeks Gestation Final Pal Confirmed By Final Pal Confirmed Date Final Pal Date Ultra Sound Latest Days Gestation 0 0 Menstrual History Last Menstrual Date Menses Monthly On Bcp Conception Prior Menses Frequency Hcg Plus Date Menarche Onset Age Delivery Information Delivery Date Delivery Type Labor Anesthesia Weeks Gestation Incision Type Labor Labor Length Hrs Delivered By Post Complications Tubal Sterilization Discharge Date Comments 1 Discharge Information Feeding Method Contraceptive Method Maternal HG B and HCT Levels Ob Episode Information Episode Created Date Number of Fetuses Patient Bloodtype Patient rh Status Prepregnancy Weight lbs Domestic Partner Domestic Partner Phone Father Name Tissue Inserter Status 02/16/20 23 1 CLOSED Fetus Data First Name Last Name Admitted to NICU Weight (g) Sex Living Outcome Pediatric Complications Fetus ID Race Codes Race Delivery Type 3486.76 [id number] Full Term [id number] Vaginal Delivery Pal Calculation Initial Pal Date Initial Exam Date Initial Exam Provider Initial Ultrasound Date Last Menstrual Period Date Ultra Sound Weeks Gestation 0 Eighteen To Twenty Week Pal Update Ultra Sound Date Fundal Height At Umbil Quickening Date Ultra Sound Latest Weeks Gestation Final Pal Confirmed By Final Pal Confirmed Date Final Pal Date Ultra Sound Latest Days Gestation 0 0 Menstrual History Last Menstrual Date Menses Monthly On Bcp Conception Prior Menses Frequency Hcg Plus Date Menarche Onset Age Delivery Information Delivery Date Delivery Type Labor Anesthesia Weeks Gestation Incision Type Labor Labor Length Hrs Delivered By Post Complications Tubal Sterilization Discharge Date Comments 7 Discharge Information Feeding Method Contraceptive Method Maternal HG B and HCT Levels
--- OUTSIDE RECORDS SUMMARY | 2024-07-11 13:52 | XMS_ITS | Continuity of Care Document ---
Author Organization [facility] Address [address] [place] [address] Phone Care Team Providers Care Quality Facilitator Name Role Phone Leigh Ann Kaplan PA-C [...] Diagnoses Date Provider Providers Copied on Encounter [facility], [address], [place], [place], [id number] , tel: [phone] [facility] IR No Information May-0 2 6 Eusebio Beltrán. [address], [place], [place], [id number] , [place]. tel: [phone] Pre[facility] Med Estab Pt; [address] [facility], [address], [place], [place], [id number] , tel: [phone] [facility] IR WWE (chief complaint) Encntr for shake packer exam (general) (routine) w/o abn findingsVaginal drynessBreast cancer screeningPostmenopaus al 9-201 6 Omel NOEL Beltrán. [address], [place], [place], [id number] , . tel:[phone] Referring Provider: Leigh Ann Kaplan PA-C, [address] [facility], [address], [place], [address] . tel:[phone] Family History Family Member Type Diagnosis Age At Onset No Information Payers Payer name Insurance type Covered republican ID Authoriza tion(s) [employer] [place] PPO BL [id number] Social History Type Description Quantity Date Captured Comments Sex Female Smoking Status No Information Chief Complaint And Reason For Visit No Information Reason For Referral Reason For Referral No Information Plan Of Treatment Date Type Action Status Referral Ordered: Mammogram; Screening, Bilateral ordered Referral Ordered: DEXA Bone Density ordered Future Order: Lab Order CBC with Diff ([id number]), Sent on: Sent Future Order: Lab Order Occult B lood, Fecal, IA ([id number]), Sent on: Sent Future Order: Lab Order TSH REFL EX ([id number]), Sent on: Sent Future Order: Lab Order LIPID PA PURNIMA ([id number]), Sent on: Sent Future Order: Lab Order CMP ([id number]), Sent on: Sent Future Order: Lab Order UA w/ mi cross cut sawyer refex to culture ([id number]), Sent on: Sent Future Order: Radiology Order Ma mmogram; Screening, Bilateral ([id number]), Added on: New Future Order: Radiology Order DE XA Bone Density ([id number]), Added on: New History Of Present Illness Encounter Date Complaint History Of Prese nt Illness WWE WWE (comments) Pt here for wwe. Pt doing well. . Pt recently moved here from [facility]. 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
--- NOTE | 2024-07-11 13:57 | ED_ITS ---
HPI - General Adult General Chief complaint: Arrhythmia/Palpitations Stated complaint: Had chest pain, sweaty, lightheaded Time Seen by Provider: 07/11/24 12:48 History of Present Illness HPI narrative: Patient is a 63-year-old female that presents emergency department with chief complaint of chest pain. Patient reports that today she was in a meeting about 9:00 a.m. in the morning started having of episode of midsternal chest pain got diaphoretic felt lightheaded and felt as though she may pass out the patient states she laid down during the meeting and reports that her symptoms past and reports that now her symptoms have resolved the patient reports she has been chest pain-free since around 10:00 a.m. patient reports that when she got home she decided to come to the emergency department to be evaluated since she was concerned she may have had a heart attack Related Data Home Medications ?Medication ?Instructions ?Recorded ?Confirmed ?Last Taken ?Type brimonidine 0.2 %-timolol 0.5 % 1 drp ophthalmic (eye) DAILY 03/22/23 04/18/23 Unknown History eye drops dorzolamide 2 % eye drops 1 drp ophthalmic (eye) DAILY 03/22/23 04/18/23 Unknown History latanoprost 0.005 % eye drops 1 drp ophthalmic (eye) DAILY 03/22/23 04/18/23 Unknown History Allergies Allergy/AdvReac Type Severity Reaction Status Date / Time No Known Allergies Allergy Mild Verified 07/11/24 11:30 Review of Systems 2 Review of Systems: A 10 system review of systems was completed on the patient and is negative except for what is stated in the HPI. Nursing and ancillary documentation was reviewed[facility] Past Medical History Medical History Colon cancer screening Social History Social History Smoking status: Never smoker Alcohol intake: never Substance use type: does not use Living arrangements: with friend(s) Spiritual care concerns: No Exam 2 Narrative: GENERAL: Well-appearing, well-nourished, and in no acute distress. HEAD: Normocephalic, atraumatic. EYES: PERRLA and EOMI. ENT: Nares clear, no rhinorrhea or epistaxis. Mucous membranes moist. NECK: Supple. CHEST: Clear to auscultation. No respiratory distress. HEART: Regular rate and rhythm. No murmur heard. Normal peripheral pulses. ABDOMEN: Soft, nontender, nondistended, normal active bowel sounds. EXTREMITIES: Normal range of motion. No edema. SKIN: Warm, dry, no rash. NEURO: No focal deficits. Alert and oriented x3. PSYCH: Normal mood and affect. Course Vital Signs Vital signs: Vital Signs Temperature 36.8 C 07/11/24 11:55 Pulse Rate 61 07/11/24 11:55 Respiratory Rate 16 07/11/24 11:55 Blood Pressure 99/94 L 07/11/24 11:55 Pulse Oximetry 98 07/11/24 11:55 Temperature 36.8 C 07/11/24 11:55 Pulse Rate 62 07/11/24 15:30 Respiratory Rate 17 07/11/24 15:30 Blood Pressure 111/63 07/11/24 15:30 Pulse Oximetry 100 07/11/24 15:30 Medical Decision Making [facility] Narrative Medical decision making narrative: Differential diagnosis includes ACS, atypical chest pain, EKG showed no acute ischemic changes initial troponin was -3 hour troponin was negative Patient will be discharged home follow-up with her primary care provider Vital Signs Vital Signs: Vital Signs Temperature 36.8 C 07/11/24 11:55 Pulse Rate 61 07/11/24 11:55 Respiratory Rate 16 07/11/24 11:55 Blood Pressure 99/94 L 07/11/24 11:55 Pulse Oximetry 98 07/11/24 11:55 Temperature 36.8 C 07/11/24 11:55 Pulse Rate 62 07/11/24 15:30 Respiratory Rate 17 07/11/24 15:30 Blood Pressure 111/63 07/11/24 15:30 Pulse Oximetry 100 07/11/24 15:30 Lab Data 07/11/24 11:55 07/11/24 11:55 Labs: Lab Results 07/11/24 07/11/24 Range/Units 11:55 14:24 WBC 9.0 (4.5-10.0) K/mm3 RBC 4.77 (4.2-5.4) M/mm3 Hgb 15.0 (12.0-15.0) g/dL Hct 45.3 (37.0-47.0) % MCV 95.0 (80-100) fl MCH 31.4 (26-34) pg MCHC 33.1 (32-36) g/dl RDW 13.1 (11.5-14.5) % Plt Count 233 (150-375) k/mm3 MPV 9.7 (7.4-10.4) fl Immature Gran % (Auto) 0.2 (0-0.5) % Neut % (Auto) 73.7 H (45.5-73.1) % Lymph % (Auto) 17.5 L (18.3-44.2) % Rains % (Auto) 6.5 (2.6-8.5) % Eos % (Auto) 1.8 (0-4.4) % Baso % (Auto) 0.3 (0.2-1.2) % Lymph # (Auto) 1.57 (0.9-3.2) K/mm3 Rains # (Auto) 0.6 (0.1-0.6) K/mm3 Eos # (Auto) 0.2 (0-0.3) K/mm3 Baso # (Auto) 0.0 (0.0-0.1) K/mm3 Abs Immat Gran (auto) 0.02 (0.00-0.031) K/mm3 Absolute Neuts (auto) 6.6 (1.3-6.7) K/mm3 Absolute Nucleated RBC 0.000 (0.0-0.012) K/mm3 Nucleated RBC % 0.0 (0.0-0.2) % PT 13.5 (11.1-14.7) Seconds INR 1.0 APTT 23.4 (22.3-36.8) Seconds Sodium 136 L (137-145) mmol/L Potassium 4.3 (3.4-5.0) mmol/L Chloride 99 (98-107) mmol/L Carbon Dioxide 30 (22-30) mmol/L Anion Gap 7 (4-12) mmol/L BUN 15 (7-17) mg/dL Creatinine 0.83 (0.7-1.0) mg/dL Estim Creat Clear Calc 57 ml/min Estimated GFR > 60 (59 - ) Glucose 104 (65-110) mg/dL Calcium 10.2 (8.4-10.2) mg/dL Total Bilirubin 0.9 (0.2-1.3) mg/dL AST 34 (14-36) U/L ALT 37 H (6-35) U/L Alkaline Phosphatase 72 (38-126) U/L Troponin I < 0.012 < 0.012 (0.000-0.034) ng/mL Total Protein 8.0 (6.3-8.2) g/dL Albumin 4.7 (3.5-5.1) g/dL Lipase 114 (23-300) U/L Discharge Plan Discharge Clinical Impression: Atypical chest pain Patient Disposition: Home Condition: Stable Instructions: Antibiotic Form, Chest Pain (ED) Patient Language: Amharic Prescriptions: No Action latanoprost 0.005 % drops 1 drp ophthalmic (eye) DAILY dorzolamide 2 % drops 1 drp ophthalmic (eye) DAILY brimonidine-timolol 0.2-0.5 % drops 1 drp ophthalmic (eye) DAILY Follow-up/Referrals: Anders,DO Nitin [Primary Care Provider] - Time of Disposition: 16:04
--- NOTE | 2024-07-11 14:25 | ECG_ITS ---
Test Date: 2024-07-11 14:33:35 Measurements Intervals [place] Rate: 64 P: 58 SD: 241 QRS: 24 QRSD: 81 T: 55 QT: 383 QTc: 395 Interpretive Statements SINUS RHYTHM WITH FIRST DEGREE AV BLOCK LOW QRS VOLTAGE IN PRECORDIAL LEADS CONSIDER ANTERIOR INFARCT, AGE INDETERMINATE CONSIDER INFERIOR INFARCT, AGE INDETERMINATE BASELINE ARTIFACT- I, II, III, AVR, AVL ABNORMAL ECG Compared to ECG 07/11/2024 11:47:53 NO SIGNIFICANT CHANGE Electronically Signed On 07-11-2024 14:44:49 CDT by Ming Nelson D.O.
[2024-07-11 15:09] LABS: Troponin I < 0.012 ng/mL (0.000-0.034)
== END 2024-07-11 16:34 | disposition home or self-care (01) ==
PROVIDERS: Emergency Provider Emergency Medicine; PCP Student in an Organized Health Care Education/Training Program
DX: R07.89 Other chest pain (principal); R00.1 Bradycardia, unspecified; I44.0 Atrioventricular block, first degree; R94.31 Abnormal electrocardiogram [ECG] [EKG]
CPT/HCPCS: 36415; 71046; 80053; 83690; 84484; 85025; 85610; 85730; 93005; 99284